=== PATIENT | male | born 1970 | race Caucasian/White ===

== ENCOUNTER 2018-08-24 21:23 | Emergency (ER) | payer BC, OTHER, SELFPAY ==
[2018-08-24 21:29] VITALS: BMI 31.1
[2018-08-24 21:30] VITALS: BP 181/96; PULSE 88; RESP 17; TEMP 36.5; O2SAT 99
--- NOTE | 2018-08-24 21:31 | PC.NURSE ---
Pt to ER 12 c/o gout to the Rt foot. Pain 06/14. Hx gout. NAD. Will continue to monitor.
--- NOTE | 2018-08-24 23:01 | ED_ITS ---
HPI - Extremity Problem General Chief complaint: Extremity Problem,Nontraumatic Stated complaint: right foot thinks has gout Time Seen by Provider: 08/24/18 22:52 Source: patient Mode of arrival: ambulatory Limitations: no limitations History of Present Illness HPI Narrative: Patient is a 48-year-old male who presents with right metatarsal pain. He said it started today. He has a history of gout this feels similar. He states he drinks daily but has not had more to drink than normal. He was been on a fishing boat the last few days. He can't remember what medication he was on previously. He did not take anything for this pain. Related Data Allergies Allergy/AdvReac Type Severity Reaction Status Date / Time No Known Drug Allergies Allergy Verified 08/24/18 21:31 Review of Systems Review of Systems GENERAL: Denies chills,fever HEENT: Denies throat pain RESPIRATORY: Denies dyspnea, cough, wheezing CARDIOVASCULAR: Denies chest pain, palpitations GASTROINTESTINAL: Denies nausea, vomiting MUSCULOSKELETAL: See HPI SKIN: No rash, no laceration, no pruritus NEUROLOGIC: Denies weakness, dizziness, headache, numbness 8 point review of systems is negative except for those stated above and HPI [facility] Medical History Gout (Acute) Social History Smoking Status: Never smoker Social History Smoking Status: Never smoker Exam Initial Vital Signs Initial Vital Signs: Vital Signs Temperature 97.7 F 08/24/18 21:30 Pulse Rate 88 08/24/18 21:30 Respiratory Rate 17 08/24/18 21:30 Blood Pressure 181/96 H 08/24/18 21:30 Pulse Oximetry 99 08/24/18 21:30 GENERAL: Well-appearing, well-nourished and in no acute distress. CARDIOVASCULAR: peripheral pulses in tact, cap refill <2 sec RESPIRATORY: No respiratory distress, speaks in full sentences without difficulty EXTREMITIES: Normal range of motion, no clubbing or edema. Neurovascularly intact Right 1st metatarsal no significant erythema or swelling. Tender to touch. NEUROLOGICAL: Cranial nerves II through XII grossly intact. Normal gait and speech. SKIN: Warm, dry, no petechiae, no rashes or lesions. Course Orders Ordered: Discontinued Medications Ketorolac Tromethamine (Toradol) 60 mg IM NOW ONE Stop: 08/24/18 22:59 Last Admin: 08/24/18 23:08 Dose: 60 mg Vital Signs - 8 hr 08/24/18 21:30 08/24/18 23:09 08/24/18 23:57 Temperature 97.7 F 98.2 F Pulse Rate 88 77 77 Respiratory Rate 17 16 16 Blood Pressure 132/67 Blood Pressure [Left Arm] 181/96 H 142/80 H Pulse Oximetry 99 98 MDM - Extremity (Nontraumatic) MDM Narrative Medical decision making narrative: Patient's pain significantly improved after Toradol. At this time recommend that he take ibuprofen at home for pain and does not seem to be a severe attack at this time. [facility].. Patient has a history of gout signs and symptoms consistent with gout at this time no further imaging or testing indicated. Discharge Plan Departure Patient Disposition: Home Clinical Impression: Gout Qualifiers: Gout site: toe Encounter type: initial encounter Laterality: right Presence of tophus: without tophus Discharge Date/Time: 08/24/18 23:58 Interventions: ED Discharge Assessment Last Done: 08/24/18 23:57 Instructions: Gout Activity Restrictions/Additional Instructions: *You have been diagnosed with gout *What to do: He to see your PCP in regards to gout and gout prevention. Other medication may be indicated *Continue to take medications as directed Ibuprofen 600 mg every 6-8 hours if needed for pain *Follow up with your primary care provider in 2-3 days *Return to ER if you should have increased redness, increased pain or any new, worsening or concerning symptoms Referrals: [facility] [Outside]
[2018-08-24] MEDS: KETOROLAC 60 MG/2 ML VIAL IM (23:08)
[2018-08-24 23:09] VITALS: BP 142/80; PULSE 77; RESP 16; TEMP 36.8
[2018-08-24 23:57] VITALS: BP 132/67; PULSE 77; RESP 16; O2SAT 98
== END 2018-08-24 23:58 | disposition home or self-care (01) ==
PROVIDERS: Emergency Provider Emergency Medicine
DX: M10.9 Gout, unspecified (principal)
CPT/HCPCS: 96372; 99282; 99283; J1885